=== PATIENT | male | born 1975 | race Caucasian/White ===

== ENCOUNTER 2022-10-19 11:12 | Emergency (ER) | payer BC, SELFPAY ==
[2022-10-19] VITALS (10 sets, daily range): BP systolic 109–120; BP diastolic 73–86; PULSE 80–85; RESP 16–18; TEMP 36.6; O2SAT 93–100
--- NOTE | ~2022-10-19 | CT_ITS ---
CT of the Abdomen and Pelvis: Indication: Abdominal pain Technique: 2.5 mm axial scans were obtained through the abdomen and pelvis following intravenous adm inistration of 100 cc of Omnipaque 350. Dose reduction technique was used on this scan by utilizing a utomated exposure control and iterative reconstruction technique. The dose-length product (DLP) was 1 233.54 mGy-cm. Findings: Scans through the lung bases are unremarkable. There is probable diffuse fatty infiltration of the liver. The spleen, pancreas, gallbladder, adrenal s and kidneys are within normal limits. No evidence of aortic aneurysm. No lymphadenopathy. Suggestion of extensive large bowel wall thickening, especially ascending and transverse colon, with probable minimal pericolonic inflammatory stranding. No bowel obstruction. No abscess or free air. Images through the pelvis were performed. Urinary bladder unremarkable. Small fat-containing left ing uinal hernia present. No ascites. Impression: Findings suggestive of extensive infectious/inflammatory colitis. Correlate clinically. Small fat-containing left inguinal hernia. Probable diffuse fatty infiltration of liver. Reviewed, dictated and finalized at [facility]. Impression: Findings suggestive of extensive infectious/inflammatory colitis. Correlate cli nically. Small fat-containing left inguinal hernia. Probable diffuse fatty infiltration of liver.
[2022-10-19 11:45] LABS: Basophils Percent Auto 0.3 % (0.2-1.2); Hematocrit 47.7 % (42.0-52.0); Hemoglobin 16.3 g/dL (14.0-18.0); Immature Granulocyte Absolute 0.04 K/mm3 (0.00-0.031); Immature Granulocyte Percent A 0.3 % (0-0.5); Lymphocytes Absolute Auto 0.74 K/mm3 (0.9-3.2); Lymphocytes Percent Auto 6.2 % (18.3-44.2); Mean Corpuscular HGB Conc 34.2 g/dl (32-36); Mean Corpuscular Hemoglobin 30.4 pg (26-34); Mean Platelet Volume 10.2 fl (7.4-10.4); Monocytes Absolute Auto 0.8 K/mm3 (0.1-0.6); Monocytes Percent Auto 6.4 % (2.6-8.5); Neutrophils Absolute Auto 10.4 K/mm3 (1.3-6.7); Neutrophils Percent Auto 86.8 % (45.5-73.1); Platelet Count Result 212 k/mm3 (150-375); Red Blood Count 5.36 M/mm3 (4.6-6.20); Red Cell Distribution Width 13.3 % (11.5-14.5)
[2022-10-19 11:48] LABS: Appearance Urine Clear (Clear); Bacteria Urine None Seen /hpf; Bilirubin Urine Negative (Negative); Blood Urine Negative (Negative); Color Urine Dark Yellow (Yellow); Glucose Urine UA Negative (Negative); Ketones Urine Trace mg/dL (Negative); Leukocyte Esterase Ur Negative LEU/UL (Negative); Nitrate Urine Negative (Negative); Protein Urine 2+ mg/dL (Negative); RBC Urine 0-2 /hpf (0-2); Specific Grav Ur 1.021 (1.001-1.035); Squamous Epithelial Cell Urine Occasional /hpf (Few); Urobilinogen Urine 0.2 mg/dL (<2.0); WBC Urine 0-5 /hpf; pH Urine 5.5 (5.0-9.0)
[2022-10-19 11:49] LABS: Add Urine Microscopic? YES
[2022-10-19 11:57] LABS: Alanine Aminotransferase 43 U/L (6-50); Albumin Level 4.6 g/dL (3.5-5.1); Alkaline Phosphatase 83 U/L (38-126); Anion Gap 11 mmol/L (8-16); Aspartate Amino Transferase 37 U/L (17-59); Bilirubin,Total 2.8 mg/dL (0.2-1.3); Blood Urea Nitrogen 17 mg/dL (9-20); Calcium 8.8 mg/dL (8.4-10.2); Carbon Dioxide 28 mmol/L (22-30); Chloride 95 mmol/L (98-107); Estimated CRCL calculation 116 ml/min; Estimated Glomerular Filt Rate > 60; Glucose 231 mg/dL (65-110); Lipase 35 U/L (23-300); Potassium 3.5 mmol/L (3.4-5.0); Sodium 134 mmol/L (137-145)
--- NOTE | 2022-10-19 12:34 | ED.ABDPAIN ---
HPI - Abdominal Pain General Chief Complaint: Abdominal Pain Stated Complaint: abd cramping, vomiting, fever Time Seen by Provider: 10/19/22 11:44 Source: patient Mode of arrival: ambulatory Limitations: no limitations History of Present Illness HPI narrative: Patient is a 47-year-old male who presents to the ED with report of abdominal cramping, N/V/D. Patient reports he had a gas station pizza that he thought was undercooked on Saturday night. He developed nausea and diarrhea approximately 2 hours later. He has had dry heaving, denies vomiting. He has tried taking Imodium without relief. He also reports having subjective fevers, chills, diaphoresis, diffuse lower abdominal cramping. He denies any documented fevers. He reports he is traveling from [place] currently. He contacted his primary from [place] and was referred to an ED for further evaluation. Patient denies any urinary complaints. Denies rectal bleeding or melena. Related Data Allergies Allergy/AdvReac Type Severity Reaction Status Date / Time No Known Allergies Allergy Verified 10/19/22 11:37 Review of Systems Review of Systems: CONSTITUTIONAL: See HPI. CARDIOVASCULAR: Denies chest pain. RESPIRATORY: Denies dyspnea. GASTROINTESTINAL: See HPI. GENITOURINARY: Denies dysuria or hematuria. SKIN: Denies rash or itching. All systems reviewed & are unremarkable except as noted in HPI and below Exam Narrative: GENERAL: Well appearing, obese with BMI 33.0, non-toxic, in no acute distress. HEAD: Normocephalic, atraumatic. NECK: Supple. No adenopathy, no masses. RESPIRATORY: Airway patent, respirations nonlabored. Clear to auscultation bilaterally, no rales, rhonchi, wheezing. CARDIOVASCULAR: Regular rate and rhythm without murmurs, rubs, or gallops. Radial pulses 2+ and equal bilaterally. ABDOMINAL: Soft, diffuse tenderness throughout lower abdomen, nondistended, no hepatosplenomegaly. Normoactive BS. MUSCULOSKELETAL: Moves all extremities. Strength/ROM intact without gross deformities. SKIN: Warm, dry, normal color. No rashes. NEURO: A&O X3. Speech clear. Cranial nerves II-XII grossly intact. Steady gait. No ataxic movements. PSYCHIATRIC: Appropriate mood and affect. Normal interaction. Course Vital Signs Vital signs: Vital Signs Temperature 97.9 F 10/19/22 11:17 Pulse Rate 85 10/19/22 11:17 Respiratory Rate 16 10/19/22 11:17 Blood Pressure 119/75 10/19/22 11:17 Pulse Oximetry 99 10/19/22 11:17 Oxygen Delivery Room Air 10/19/22 11:17 Temperature 97.9 F 10/19/22 11:17 Pulse Rate 80 10/19/22 14:38 Respiratory Rate 18 10/19/22 14:38 Blood Pressure 109/73 10/19/22 14:38 Pulse Oximetry 100 10/19/22 14:38 Oxygen Delivery Room Air 10/19/22 11:17 MDM - Abdominal Pain MDM Narrative Medical decision making narrative: Patient presented to ED with nausea, diarrhea, lower abdominal cramping. Potential concern for food poisoning related to gas station pizza that he ate prior to when symptoms began. Vital signs stable upon arrival. Afebrile. Leukocytosis of 12. Neutrophil predominance. No bandemia. CMP fairly unremarkable, electrolytes stable, stable kidney function, blood glucose mildly elevated to 231. Patient with known history of diabetes. On medication. No evidence of DKA. No anion gap. Normal bicarb. Total bilirubin also elevated to 2.8. No records to compare to. Otherwise normal LFTs. Normal lipase. Urinalysis with trace ketones, no signs of infection. CT scan of abdomen pelvis obtained and showing findings consistent with infectious versus inflammatory colitis. Patient updated on lab and imaging findings. He is feeling better after fluid and nausea medicine. Able to tolerate p.o. intake. Given patient's leukocytosis, report of fevers, extensive nature of colitis on imaging, will prescribe Cipro/Flagyl for potentially infectious colitis. Will also prescribe Zofran for home. Advised gibson
[2022-10-19] MEDS: ONDANSETRON INJ 4 MG/2 ML VIAL IV PUSH (12:35)
[2022-10-19] MEDS: ACETAMINOPHEN 500 MG TABLET 1000 MG PO (12:35)
[2022-10-19] MEDS: SODIUM CHLORIDE 0.9% IV 1,000 ML 999 ML IV CONT ×2 (12:35→13:43)
--- NOTE | 2022-10-19 12:42 | PC.NURSE ---
Patient off unit to CT.
== END 2022-10-19 14:45 | disposition home or self-care (01) ==
PROVIDERS: Preventive Medicine Aerospace Medicine; Emergency Provider Physician Assistant
DX: K52.9 Noninfective gastroenteritis and colitis, unspecified (principal)
CPT/HCPCS: 36415; 74177; 80053; 81001; 83690; 85025; 96361; 96374; 99284; A9270; J2405; J7030; Q9967